=== PATIENT | female | born 1930 | race Caucasian/White ===

== ENCOUNTER 2016-04-30 10:01 | Emergency (ER) | payer OTHER, BC ==
[~2016-04-30] VITALS: Ht 172.7 cm; Wt 79.0 kg
[~2016-04-30 10:01] MED LIST: ADVIL,NUPRIN,M200 MG PO; AMLODIPINE BES2.5 MG PO; CALCIUM 600 +1 EA12 PO; DONEPEZIL HCL10 MG PO; FOLIC ACID1 MG PO; LOSARTAN POTAS100 MG PO; TYLENOL EXTRA500 MG PO; VITAMIN B-12500 MC2 PO; VITRON-C TABLE1 EACH PO
[2016-04-30 10:40] LABS: HEMATOCRIT 35.9 % (36.0-46.0); MCH 30.1 PG (29.0-34.0); MCHC 32.6 G/DL (30.0-36.0); MCV 92.3 FL (83-99); MEAN PLAT.VOLUME 9.5 uM^3 (9.5-12.4); PLATELET COUNT 277 K/uL (156-360); RBC DIS.WIDTH-CV 13.6 % (11.8-14.6); RBC DIS.WIDTH-SD 44.6 % (39-53); RED BLOOD COUNT 3.89 M/uL (3.80-5.20); WHITE BLOOD COUNT 8.3 K/uL (4.1-10.2)
[2016-04-30 10:48] LABS: PROTHROMBIN TIME 10.1 (9.2-11.2)
[2016-04-30 10:49] LABS: CHLORIDE 104 mEq/L (99-109); POTASSIUM 4.1 mEq/L (3.7-5.4); SODIUM 137 mEq/L (136-147)
[2016-04-30 10:51] LABS: GLUCOSE 137 mg/dL (70-99)
[2016-04-30 10:52] LABS: ANION GAP 8 MEQ/L (2-14)
[2016-04-30 10:55] LABS: GFR ESTIMATE (CALCULATED) 41 mL/min/; UREA NITROGEN (BUN) 21 mg/dL (9-23)
[2016-04-30 11:00] LABS: TROP-I INTERPRETATION NEGATIVE; TROPONIN-I < 0.01 ng/mL (0.0-0.30)
[2016-04-30 15:56] VITALS: BP 149/76
== END 2016-04-30 15:57 ==
LOC: EME → EDBD 10:01 → EME 10:01
PROVIDERS: Emergency Medicine
DX: I49.9 Cardiac arrhythmia, unspecified (principal); F03.90 Unspecified dementia, unspecified severity, without behavioral disturbance, psychotic disturbance, mood disturbance, and anxiety; I10 Essential (primary) hypertension; Z88.2 Allergy status to sulfonamides
CPT/HCPCS: 71010; 80048; 81003; 83605; 84484; 85027; 85610; 93005; 99281; 99285; J7030

== ENCOUNTER 2017-01-30 19:12 | Inpatient (IN) | payer OTHER, BC ==
[~2017-01-30] VITALS: Ht 162.6 cm; Wt 90.0 kg
[~2017-01-30 19:12] MED LIST changes: -AMLODIPINE BES2.5 MG PO; +AMLODIPINE BESYL5 MG PO; +CYANOCOBALAM1000 MCG PO; -LOSARTAN POTAS100 MG PO; +LOSARTAN POTASS50 MG PO; -VITAMIN B-12500 MC2 PO
[2017-01-30 19:38] LABS: HEMATOCRIT 35.7 % (36.0-46.0); MCH 29.8 PG (29.0-34.0); MCHC 33.3 G/DL (30.0-36.0); MCV 89.5 FL (83-99); MEAN PLAT.VOLUME 8.3 uM^3 (9.5-12.4); PLATELET COUNT 392 K/uL (156-360); RBC DIS.WIDTH-CV 12.8 % (11.8-14.6); RBC DIS.WIDTH-SD 42.1 % (39-53); RED BLOOD COUNT 3.99 M/uL (3.80-5.20); WHITE BLOOD COUNT 15.6 K/uL (4.1-10.2)
[2017-01-30 19:44] LABS: PROTHROMBIN TIME 11.3 SEC (10.2-12.9)
[2017-01-30 19:46] LABS: CHLORIDE 92 mEq/L (99-109); POTASSIUM 4.5 mEq/L (3.7-5.4); SODIUM 132 mEq/L (136-147)
[2017-01-30 19:47] LABS: PTT 26.7 SEC (25-37)
[2017-01-30 19:48] LABS: GLUCOSE 187 mg/dL (70-99)
[2017-01-30 19:50] LABS: ANION GAP 15 MEQ/L (2-14)
[2017-01-30 19:52] LABS: GFR ESTIMATE (CALCULATED) 38 mL/min/
[2017-01-30 19:53] LABS: UREA NITROGEN (BUN) 28 mg/dL (9-23)
[2017-01-30 19:59] LABS: TROP-I INTERPRETATION NEGATIVE; TROPONIN-I 0.02 ng/mL (0.0-0.30)
[2017-01-30] MEDS ORDERED: FEOSOL325 MG PO (21:11)
[2017-01-30] MEDS ORDERED: MOBIC7.5 MG PO (21:13)
[2017-01-30] MEDS ORDERED: ZOLOFT50 MG PO (21:16)
[2017-01-30] MEDS ORDERED: DEPAKOTE125 MG PO (21:17)
[2017-01-30] MEDS ORDERED: CRANBERRY450 M3 PO (21:17)
[2017-01-30] MEDS ORDERED: ULTRAM50 MG PO (21:20)
[2017-01-30] MEDS ORDERED: XALATAN2.5 ML BOTH EYES (21:22)
[2017-01-31] VITALS (7 sets, daily range): BP systolic 103–138; BP diastolic 57–76
[2017-01-31 15:03] LABS: TROP-I INTERPRETATION NEGATIVE; TROPONIN-I 0.03 ng/mL (0.0-0.30)
[2017-02-01 06:20] LABS: HEMATOCRIT 36.2 % (36.0-46.0); MCH 29.9 PG (29.0-34.0); MCHC 34.3 G/DL (30.0-36.0); MCV 87.2 FL (83-99); MEAN PLAT.VOLUME 9.2 uM^3 (9.5-12.4); PLATELET COUNT 423 K/uL (156-360); RBC DIS.WIDTH-CV 13.2 % (11.8-14.6); RBC DIS.WIDTH-SD 42.1 % (39-53); RED BLOOD COUNT 4.15 M/uL (3.80-5.20); WHITE BLOOD COUNT 25.9 K/uL (4.1-10.2)
[2017-02-01 06:31] VITALS: BP 145/69
[2017-02-01 06:44] LABS: ALKALINE PHOSPHATASE 130 IU/L (3-129); ANION GAP 13 MEQ/L (2-14); CHLORIDE 93 MEQ/L (99-109); SAMPLE HEMOLYSIS CHECK 0; SAMPLE ICTERIC CHECK 0; SAMPLE LIPEMIA CHECK 0; SODIUM 131 MEQ/L (136-147); TOTAL BILIRUBIN 0.3 MG/DL (0.0-1.0)
[2017-02-01 06:48] LABS: GFR ESTIMATE (CALCULATED) 11 mL/min/; GLUCOSE 114 mg/dL (70-99); POTASSIUM 5.7 MEQ/L (3.7-5.4); UREA NITROGEN (BUN) 57 mg/dL (9-23)
[2017-02-01 08:23] VITALS: BP 132/77
[2017-02-01 12:10] VITALS: BP 117/74
[2017-02-01 16:30] VITALS: BP 118/73
[2017-02-01 23:41] VITALS: BP 123/59
[2017-02-02 05:33] LABS: HEMATOCRIT 33.7 % (36.0-46.0); MCH 29.4 PG (29.0-34.0); MCHC 33.5 G/DL (30.0-36.0); MCV 87.5 FL (83-99); MEAN PLAT.VOLUME 9.6 uM^3 (9.5-12.4); PLATELET COUNT 411 K/uL (156-360); RBC DIS.WIDTH-CV 13.2 % (11.8-14.6); RBC DIS.WIDTH-SD 42.4 % (39-53); RED BLOOD COUNT 3.85 M/uL (3.80-5.20); WHITE BLOOD COUNT 24.1 K/uL (4.1-10.2)
[2017-02-02 06:09] LABS: ALKALINE PHOSPHATASE 126 IU/L (3-129); ANION GAP 15 MEQ/L (2-14); CHLORIDE 91 MEQ/L (99-109); GFR ESTIMATE (CALCULATED) 9 mL/min/; GLUCOSE 101 mg/dL (70-99); POTASSIUM 5.1 MEQ/L (3.7-5.4); SAMPLE HEMOLYSIS CHECK 0; SAMPLE ICTERIC CHECK 0; SAMPLE LIPEMIA CHECK 0; SODIUM 130 MEQ/L (136-147); TOTAL BILIRUBIN 0.3 MG/DL (0.0-1.0); UREA NITROGEN (BUN) 80 mg/dL (9-23)
[2017-02-02 08:08] VITALS: BP 142/82
[2017-02-02 15:50] LABS: ADD MIUA? YES; BILIRUBIN NEGATIVE; BLOOD NEGATIVE; COLOR YELLOW ((YELLOW)); GLUCOSE (STRIP) NEGATIVE; KETONES NEGATIVE; LEUKOCYTES TRACE; NITRITE NEGATIVE; PROTEIN (STRIP) 30; SPECIFIC GRAVITY 1.017 (1.000-1.030); UROBILINOGEN 0.2 MG/DL (0.2-1.0)
[2017-02-02 16:03] LABS: BACTERIA RARE /HPF; EPITHELIAL CELLS 1+ /HPF; HYALINE CASTS 0-5 /LPF; MUCUS TRACE /LPF; RED BLOOD CELLS 0-5 /HPF (0-5); WHITE BLOOD CELLS CLUMP RARE /HPF (0-5)
[2017-02-02 16:21] VITALS: BP 132/63
[2017-02-02 23:13] VITALS: BP 131/63
[2017-02-03 06:58] LABS: EOSINOPHIL (%) 0.3 % (0-5); EOSINOPHIL COUNT 0.1 K/uL (0-0.3); HEMATOCRIT 32.3 % (36.0-46.0); IMMATURE GRANULOCYTE (%) 0.9 % (0.0-0.7); IMMATURE GRANULOCYTE COUNT 0.2 K/uL; INSTRUMENT ABS NEUTROPHIL CT 20.5 K/uL; LYMPHOCYTE COUNT 0.8 K/uL (1.0-2.8); MCH 28.8 PG (29.0-34.0); MCHC 32.2 G/DL (30.0-36.0); MCV 89.5 FL (83-99); MEAN PLAT.VOLUME 8.9 uM^3 (9.5-12.4); MONOCYTE (%) 3.8 % (3-12); MONOCYTE COUNT 0.9 K/uL (0-0.8); NEUTROPHIL (%) 91.3 % (45-76); NEUTROPHIL COUNT 20.5 K/uL (1.8-6.4); PLATELET COUNT 398 K/uL (156-360); RBC DIS.WIDTH-CV 13.3 % (11.8-14.6); RBC DIS.WIDTH-SD 43.8 % (39-53); RED BLOOD COUNT 3.61 M/uL (3.80-5.20); WHITE BLOOD COUNT 22.5 K/uL (4.1-10.2)
[2017-02-03 07:45] VITALS: BP 132/63
[2017-02-03 08:36] LABS: ALKALINE PHOSPHATASE 129 IU/L (3-129); ANION GAP 14 MEQ/L (2-14); CHLORIDE 97 MEQ/L (99-109); CREATINE KINASE 35 IU/L (1-294); GFR ESTIMATE (CALCULATED) 9 mL/min/; GLUCOSE 93 mg/dL (70-99); SAMPLE HEMOLYSIS CHECK 0; SAMPLE ICTERIC CHECK 0; SAMPLE LIPEMIA CHECK 0; SODIUM 133 MEQ/L (136-147); UREA NITROGEN (BUN) 99 mg/dL (9-23); URIC ACID 9.8 mg/dL (3.1-9.2)
[2017-02-03 08:37] LABS: TOTAL BILIRUBIN 0.2 MG/DL (0.0-1.0)
[2017-02-03 10:06] LABS: ADD MIUA? YES; BILIRUBIN NEGATIVE; BLOOD MODERATE; COLOR YELLOW ((YELLOW)); GLUCOSE (STRIP) NEGATIVE; KETONES NEGATIVE; LEUKOCYTES MODERATE; NITRITE NEGATIVE; PROTEIN (STRIP) 30; SPECIFIC GRAVITY 1.013 (1.000-1.030); UROBILINOGEN 0.2 MG/DL (0.2-1.0)
[2017-02-03 10:45] LABS: BACTERIA 2+ /HPF; EPITHELIAL CELLS RARE /HPF; HYALINE CASTS 15-20 /LPF; MUCUS TRACE /LPF; UCUL ADDED? YES; WHITE BLOOD CELLS 15-20 /HPF (0-5); WHITE BLOOD CELLS CLUMP FEW /HPF (0-5)
[2017-02-03 11:36] VITALS: BP 137/66
[2017-02-03 11:39] VITALS: BP 132/63
[2017-02-03 16:14] VITALS: BP 139/67
[2017-02-03 23:44] VITALS: BP 159/79
[2017-02-04 06:52] LABS: EOSINOPHIL (%) 0 % (0-5); HEMATOCRIT 31.4 % (36.0-46.0); IMMATURE GRANULOCYTE (%) 2.4 % (0.0-0.7); IMMATURE GRANULOCYTE COUNT 0.4 K/uL; INSTRUMENT ABS NEUTROPHIL CT 14.9 K/uL; LYMPHOCYTE COUNT 0.7 K/uL (1.0-2.8); MCHC 33.1 G/DL (30.0-36.0); MCV 87.5 FL (83-99); MEAN PLAT.VOLUME 8.7 uM^3 (9.5-12.4); MONOCYTE (%) 3.9 % (3-12); MONOCYTE COUNT 0.7 K/uL (0-0.8); NEUTROPHIL (%) 89.4 % (45-76); NEUTROPHIL COUNT 14.9 K/uL (1.8-6.4); PLATELET COUNT 417 K/uL (156-360); RBC DIS.WIDTH-CV 13.2 % (11.8-14.6); RBC DIS.WIDTH-SD 42.6 % (39-53); RED BLOOD COUNT 3.59 M/uL (3.80-5.20); WHITE BLOOD COUNT 16.7 K/uL (4.1-10.2)
[2017-02-04 07:48] LABS: ANION GAP 15 MEQ/L (2-14); CHLORIDE 103 MEQ/L (99-109); GLUCOSE 108 mg/dL (70-99); POTASSIUM 5.2 MEQ/L (3.7-5.4); SAMPLE HEMOLYSIS CHECK 0; SAMPLE ICTERIC CHECK 0; SAMPLE LIPEMIA CHECK 0
[2017-02-04 07:54] LABS: GFR ESTIMATE (CALCULATED) 12 mL/min/; SODIUM 141 MEQ/L (136-147)
[2017-02-04 08:15] LABS: UREA NITROGEN (BUN) 117 mg/dL (9-23)
[2017-02-04 08:22] VITALS: BP 164/76
[2017-02-04 15:00] VITALS: BP 137/65
[2017-02-04 23:27] VITALS: BP 183/72
[2017-02-04 23:44] VITALS: BP 142/58
[2017-02-05 06:53] LABS: HEMATOCRIT 30.1 % (36.0-46.0); MCH 28.8 PG (29.0-34.0); MCHC 32.6 G/DL (30.0-36.0); MCV 88.5 FL (83-99); MEAN PLAT.VOLUME 8.9 uM^3 (9.5-12.4); PLATELET COUNT 462 K/uL (156-360); RBC DIS.WIDTH-CV 13.6 % (11.8-14.6); RBC DIS.WIDTH-SD 44.2 % (39-53); WHITE BLOOD COUNT 18.3 K/uL (4.1-10.2)
[2017-02-05 07:34] LABS: ANION GAP 13 MEQ/L (2-14); CHLORIDE 107 MEQ/L (99-109); GFR ESTIMATE (CALCULATED) 17 mL/min/; GLUCOSE 96 mg/dL (70-99); MAGNESIUM 2.2 mg/dl (1.3-2.7); POTASSIUM 4.3 MEQ/L (3.7-5.4); SAMPLE HEMOLYSIS CHECK 0; SAMPLE ICTERIC CHECK 0; SAMPLE LIPEMIA CHECK 0; SODIUM 145 MEQ/L (136-147)
[2017-02-05 07:41] LABS: ABS NEUTROPHIL COUNT 15.6; ANISOCYTOSIS 1+; ATYPICAL LYMPHOCYTE 1.7 %; EOSINOPHIL ABS CT 0; HYPOCHROMASIA 1+; INSTRUMENT ABS NEUTROPHIL CT 14.8 K/uL; LYMPHOCYTES 4.4 % (15.0-45.0); MACROCYTES 1+; METAMYELOCYTES 0.9 %; MYELOCYTES 4.4 %; PLAT.SUFFICIENCY INCREASED; SEG.NEUTROPHILS 85.1 % (46.0-76.0); TARGET CELLS 1+
[2017-02-05 07:43] LABS: UREA NITROGEN (BUN) 112 mg/dL (9-23)
[2017-02-05 08:13] VITALS: BP 149/83
[2017-02-05 15:41] VITALS: BP 152/78
[2017-02-05 19:26] VITALS: BP 123/95
[2017-02-05 23:36] VITALS: BP 142/72
[2017-02-06 04:38] VITALS: BP 171/72
[2017-02-06 08:27] VITALS: BP 168/74
[2017-02-06 15:32] VITALS: BP 175/75
[2017-02-06 23:31] VITALS: BP 135/63
[2017-02-07 06:55] LABS: ANION GAP 10 MEQ/L (2-14); CHLORIDE 116 MEQ/L (99-109); GFR ESTIMATE (CALCULATED) 35 mL/min/; GLUCOSE 96 mg/dL (70-99); SAMPLE HEMOLYSIS CHECK 0; SAMPLE ICTERIC CHECK 0; SAMPLE LIPEMIA CHECK 0; SODIUM 151 MEQ/L (136-147); UREA NITROGEN (BUN) 77 mg/dL (9-23)
[2017-02-07 07:32] VITALS: BP 159/73
[2017-02-07 16:01] VITALS: BP 155/67
[2017-02-07 23:31] VITALS: BP 130/65
[2017-02-08 06:59] LABS: HEMATOCRIT 26.8 % (36.0-46.0); MCH 30.1 PG (29.0-34.0); MCHC 33.2 G/DL (30.0-36.0); MCV 90.5 FL (83-99); RBC DIS.WIDTH-CV 14.1 % (11.8-14.6); RBC DIS.WIDTH-SD 46.3 % (39-53); RED BLOOD COUNT 2.96 M/uL (3.80-5.20)
[2017-02-08 07:24] LABS: ANION GAP 9 MEQ/L (2-14); CHLORIDE 121 MEQ/L (99-109); GFR ESTIMATE (CALCULATED) 30 mL/min/; GLUCOSE 96 mg/dL (70-99); POTASSIUM 4.3 MEQ/L (3.7-5.4); SAMPLE HEMOLYSIS CHECK 0; SAMPLE ICTERIC CHECK 0; SAMPLE LIPEMIA CHECK 0; SODIUM 156 MEQ/L (136-147); UREA NITROGEN (BUN) 73 mg/dL (9-23)
[2017-02-08 07:31] LABS: ABS NEUTROPHIL COUNT 22.5; ANISOCYTOSIS 1+; ATYPICAL LYMPHOCYTE 1.8 %; BAND NEUTROPHILS 0.9 % (0-8.0); EOSINOPHIL ABS CT 0.4; EOSINOPHILS 1.8 % (0-5.0); INSTRUMENT ABS NEUTROPHIL CT 19.4 K/uL; MACROCYTES 1+; METAMYELOCYTES 0.9 %; PLAT.SUFFICIENCY INCREASED; PLATELET CLUMPS PRESENT - PLATELET COUNT APPEARS INCREASED; SEG.NEUTROPHILS 92.8 % (46.0-76.0); TARGET CELLS 1+
[2017-02-08 07:34] LABS: PLATELET COUNT UNABLE TO REPORT K/uL (156-360)
[2017-02-08 08:20] VITALS: BP 114/56
[2017-02-08 16:38] VITALS: BP 158/75
[2017-02-08 23:22] VITALS: BP 177/80
[2017-02-09 06:57] LABS: EOSINOPHIL (%) 0 % (0-5); IMMATURE GRANULOCYTE (%) 3.8 % (0.0-0.7); IMMATURE GRANULOCYTE COUNT 1.1 K/uL; INSTRUMENT ABS NEUTROPHIL CT 26.9 K/uL; LYMPHOCYTE COUNT 1.2 K/uL (1.0-2.8); MEAN PLAT.VOLUME 9.4 uM^3 (9.5-12.4); MONOCYTE (%) 2.3 % (3-12); MONOCYTE COUNT 0.7 K/uL (0-0.8); NEUTROPHIL (%) 89.9 % (45-76); NEUTROPHIL COUNT 26.9 K/uL (1.8-6.4)
[2017-02-09 07:02] LABS: HEMATOCRIT 25.3 % (36.0-46.0); MCHC 32.8 G/DL (30.0-36.0); MCV 91.3 FL (83-99); RBC DIS.WIDTH-CV 14.4 % (11.8-14.6); RBC DIS.WIDTH-SD 47.5 % (39-53); RED BLOOD COUNT 2.77 M/uL (3.80-5.20)
[2017-02-09 07:03] LABS: PLATELET COUNT 396 K/uL (156-360); WHITE BLOOD COUNT 30.6 K/uL (4.1-10.2)
[2017-02-09 07:18] LABS: ALKALINE PHOSPHATASE 130 IU/L (3-129); ANION GAP 10 MEQ/L (2-14); CHLORIDE 118 MEQ/L (99-109); GFR ESTIMATE (CALCULATED) 30 mL/min/; POTASSIUM 3.9 MEQ/L (3.7-5.4); SAMPLE HEMOLYSIS CHECK 0; SAMPLE ICTERIC CHECK 0; SAMPLE LIPEMIA CHECK 0; SODIUM 152 MEQ/L (136-147); TOTAL BILIRUBIN 0.2 MG/DL (0.0-1.0); UREA NITROGEN (BUN) 72 mg/dL (9-23)
[2017-02-09 07:19] LABS: GLUCOSE 180 mg/dL (70-99); MAGNESIUM 1.8 mg/dl (1.3-2.7)
[2017-02-09 07:46] VITALS: BP 126/59
[2017-02-09 15:51] LABS: C DIFF TOXIN NEGATIVE (NEGATIVE)
[2017-02-09 16:02] LABS: PROBE CHECK PASS; SPECIMEN PROCESSING CONTROL PASS
[2017-02-09 16:48] VITALS: BP 133/68
[2017-02-09 23:15] VITALS: BP 137/63
[2017-02-10 06:25] LABS: BASOPHIL COUNT 0.1 K/uL (0-0.1); EOSINOPHIL (%) 0 % (0-5); HEMATOCRIT 24.6 % (36.0-46.0); IMMATURE GRANULOCYTE (%) 2.6 % (0.0-0.7); IMMATURE GRANULOCYTE COUNT 0.8 K/uL; INSTRUMENT ABS NEUTROPHIL CT 27.5 K/uL; LYMPHOCYTE COUNT 1.2 K/uL (1.0-2.8); MCH 29.8 PG (29.0-34.0); MCHC 32.9 G/DL (30.0-36.0); MCV 90.4 FL (83-99); MONOCYTE (%) 1.5 % (3-12); MONOCYTE COUNT 0.4 K/uL (0-0.8); NEUTROPHIL (%) 91.8 % (45-76); NEUTROPHIL COUNT 27.5 K/uL (1.8-6.4); RBC DIS.WIDTH-CV 14.7 % (11.8-14.6); RED BLOOD COUNT 2.72 M/uL (3.80-5.20)
[2017-02-10 06:37] LABS: ALKALINE PHOSPHATASE 122 IU/L (3-129); ANION GAP 11 MEQ/L (2-14); CHLORIDE 112 MEQ/L (99-109); GFR ESTIMATE (CALCULATED) 28 mL/min/; GLUCOSE 170 mg/dL (70-99); POTASSIUM 3.9 MEQ/L (3.7-5.4); SAMPLE HEMOLYSIS CHECK 0; SAMPLE ICTERIC CHECK 0; SAMPLE LIPEMIA CHECK 0; TOTAL BILIRUBIN 0.2 MG/DL (0.0-1.0); UREA NITROGEN (BUN) 74 mg/dL (9-23)
[2017-02-10 06:38] LABS: SODIUM 144 MEQ/L (136-147)
[2017-02-10 06:39] LABS: MEAN PLAT.VOLUME 10.7 uM^3 (9.5-12.4); PLATELET COUNT 260 K/uL (156-360)
[2017-02-10 07:28] VITALS: BP 127/76
[2017-02-10 11:48] VITALS: BP 141/72
[2017-02-10 11:53] VITALS: BP 126/80; BP 141/72
[2017-02-10 15:21] VITALS: BP 123/92
[2017-02-11 00:01] VITALS: BP 131/68
[2017-02-11 05:51] LABS: BASOPHIL COUNT 0.1 K/uL (0-0.1); EOSINOPHIL (%) 0 % (0-5); HEMATOCRIT 24.8 % (36.0-46.0); IMMATURE GRANULOCYTE (%) 1.8 % (0.0-0.7); IMMATURE GRANULOCYTE COUNT 0.6 K/uL; INSTRUMENT ABS NEUTROPHIL CT 27.8 K/uL; LYMPHOCYTE COUNT 0.8 K/uL (1.0-2.8); MCH 28.7 PG (29.0-34.0); MCHC 32.3 G/DL (30.0-36.0); MCV 88.9 FL (83-99); MEAN PLAT.VOLUME 9.7 uM^3 (9.5-12.4); MONOCYTE COUNT 0.6 K/uL (0-0.8); NEUTROPHIL (%) 93.2 % (45-76); NEUTROPHIL COUNT 27.8 K/uL (1.8-6.4); NRBC (%) 0.1 /100 WBC (0-0); RBC DIS.WIDTH-CV 14.4 % (11.8-14.6); RBC DIS.WIDTH-SD 45.8 % (39-53); RED BLOOD COUNT 2.79 M/uL (3.80-5.20); WHITE BLOOD COUNT 29.9 K/uL (4.1-10.2)
[2017-02-11 05:54] LABS: PLATELET COUNT 480 K/uL (156-360)
[2017-02-11 06:21] LABS: ANION GAP 11 MEQ/L (2-14); CHLORIDE 108 MEQ/L (99-109); GFR ESTIMATE (CALCULATED) 25 mL/min/; GLUCOSE 122 mg/dL (70-99); MAGNESIUM 1.9 mg/dl (1.3-2.7); POTASSIUM 4.5 MEQ/L (3.7-5.4); SAMPLE HEMOLYSIS CHECK 0; SAMPLE ICTERIC CHECK 0; SAMPLE LIPEMIA CHECK 0; SODIUM 143 MEQ/L (136-147); UREA NITROGEN (BUN) 88 mg/dL (9-23)
[2017-02-11 07:16] VITALS: BP 143/67
[2017-02-11 09:08] LABS: TROP-I INTERPRETATION NEGATIVE; TROPONIN-I 0.04 ng/mL (0.0-0.30)
[2017-02-11 12:19] LABS: POINT-OF-CARE METER ID UU14208753
[2017-02-11 14:58] LABS: TROP-I INTERPRETATION NEGATIVE; TROPONIN-I 0.04 ng/mL (0.0-0.30)
[2017-02-11 15:54] VITALS: BP 133/71
[2017-02-11 20:05] LABS: TROP-I INTERPRETATION NEGATIVE; TROPONIN-I 0.05 ng/mL (0.0-0.30)
[2017-02-11 23:26] VITALS: BP 135/68
[2017-02-12] VITALS (23 sets, daily range): BP systolic 90–145; BP diastolic 54–97
[2017-02-12 00:52] LABS: INTER. NORMALIZED RATIO 1.1
[2017-02-12 07:15] LABS: ANION GAP 10 MEQ/L (2-14); CHLORIDE 109 MEQ/L (99-109); GFR ESTIMATE (CALCULATED) 25 mL/min/; GLUCOSE 154 mg/dL (70-99); MAGNESIUM 1.8 mg/dl (1.3-2.7); SAMPLE HEMOLYSIS CHECK 0; SAMPLE ICTERIC CHECK 0; SAMPLE LIPEMIA CHECK 0; SODIUM 140 MEQ/L (136-147); UREA NITROGEN (BUN) 97 mg/dL (9-23)
[2017-02-12 09:40] LABS: EOSINOPHIL (%) 30.9 % (0-5); EOSINOPHIL COUNT 7.9 K/uL (0-0.3); HEMATOCRIT 18.8 % (36.0-46.0); IMMATURE GRANULOCYTE (%) 1.5 % (0.0-0.7); IMMATURE GRANULOCYTE COUNT 0.4 K/uL; INSTRUMENT ABS NEUTROPHIL CT 16.2 K/uL; LYMPHOCYTE COUNT 0.5 K/uL (1.0-2.8); MCH 29.7 PG (29.0-34.0); MEAN PLAT.VOLUME 10.4 uM^3 (9.5-12.4); MONOCYTE (%) 2.1 % (3-12); MONOCYTE COUNT 0.6 K/uL (0-0.8); NEUTROPHIL (%) 63.3 % (45-76); NEUTROPHIL COUNT 16.2 K/uL (1.8-6.4); PLATELET COUNT 431 K/uL (156-360); RBC DIS.WIDTH-CV 14.5 % (11.8-14.6); RED BLOOD COUNT 2.09 M/uL (3.80-5.20); WHITE BLOOD COUNT 25.7 K/uL (4.1-10.2)
[2017-02-12 15:52] LABS: BASOPHIL COUNT 0.1 K/uL (0-0.1); EOSINOPHIL (%) 0 % (0-5); HEMATOCRIT 16.2 % (36.0-46.0); HEMATOCRIT 16.5 % (36.0-46.0); IMMATURE GRANULOCYTE (%) 3.2 % (0.0-0.7); IMMATURE GRANULOCYTE COUNT 1.1 K/uL; MCH 29.5 PG (29.0-34.0); MCHC 32.1 G/DL (30.0-36.0); MCV 91.7 FL (83-99); MEAN PLAT.VOLUME 10.3 uM^3 (9.5-12.4); MONOCYTE (%) 2.7 % (3-12); NEUTROPHIL (%) 91.3 % (45-76); NRBC (%) 0.1 /100 WBC (0-0); PLATELET COUNT 468 K/uL (156-360); RBC DIS.WIDTH-CV 14.7 % (11.8-14.6); RBC DIS.WIDTH-SD 48.2 % (39-53); RED BLOOD COUNT 1.76 M/uL (3.80-5.20)
[2017-02-12 15:56] LABS: WHITE BLOOD COUNT 36.1 K/uL (4.1-10.2)
[2017-02-12 16:00] LABS: ANION GAP 12 MEQ/L (2-14); CHLORIDE 108 MEQ/L (99-109); POTASSIUM 4.4 MEQ/L (3.7-5.4); SAMPLE HEMOLYSIS CHECK 0; SAMPLE ICTERIC CHECK 0; SAMPLE LIPEMIA CHECK 0; SODIUM 137 MEQ/L (136-147)
[2017-02-12 16:01] LABS: TOTAL BILIRUBIN 0.5 MG/DL (0.0-1.0)
[2017-02-12 16:07] LABS: GFR ESTIMATE (CALCULATED) 21 mL/min/; GLUCOSE 187 mg/dL (70-99)
[2017-02-12 16:09] LABS: ALKALINE PHOSPHATASE 87 IU/L (3-129); TROP-I INTERPRETATION NEGATIVE; TROPONIN-I 0.06 ng/mL (0.0-0.30)
[2017-02-12 16:24] LABS: UREA NITROGEN (BUN) 111 mg/dL (9-23)
[2017-02-12 18:37] LABS: POINT-OF-CARE METER ID UU14174217
[2017-02-12 19:00] LABS: METH RESISTANT S AUREUS PCR NEGATIVE (NEGATIVE)
[2017-02-12 19:03] LABS: PROBE CHECK PASS; SPECIMEN PROCESSING CONTROL PASS
[2017-02-12 20:14] LABS: HEMATOCRIT 24.2 % (36.0-46.0); MCV 88.6 FL (83-99)
[2017-02-13] VITALS (20 sets, daily range): BP systolic 98–161; BP diastolic 60–119
[2017-02-13 01:52] LABS: HEMATOCRIT 31.2 % (36.0-46.0)
[2017-02-13 05:41] LABS: INTER. NORMALIZED RATIO 1.1; PROTHROMBIN TIME 12.3 SEC (10.2-12.9)
[2017-02-13 05:54] LABS: BASOPHIL COUNT 0.1 K/uL (0-0.1); EOSINOPHIL (%) 0 % (0-5); HEMATOCRIT 29.6 % (36.0-46.0); IMMATURE GRANULOCYTE (%) 3.7 % (0.0-0.7); IMMATURE GRANULOCYTE COUNT 1.1 K/uL; INSTRUMENT ABS NEUTROPHIL CT 26.4 K/uL; LYMPHOCYTE COUNT 0.8 K/uL (1.0-2.8); MCH 28.9 PG (29.0-34.0); MCHC 33.4 G/DL (30.0-36.0); MCV 86.3 FL (83-99); MONOCYTE (%) 3.6 % (3-12); MONOCYTE COUNT 1.1 K/uL (0-0.8); NEUTROPHIL (%) 89.7 % (45-76); NEUTROPHIL COUNT 26.4 K/uL (1.8-6.4); RBC DIS.WIDTH-CV 15.8 % (11.8-14.6); RBC DIS.WIDTH-SD 49.3 % (39-53); WHITE BLOOD COUNT 29.4 K/uL (4.1-10.2)
[2017-02-13 05:55] LABS: RED BLOOD COUNT 3.43 M/uL (3.80-5.20)
[2017-02-13 06:19] LABS: ALKALINE PHOSPHATASE 78 IU/L (3-129); ANION GAP 12 MEQ/L (2-14); CHLORIDE 114 MEQ/L (99-109); GFR ESTIMATE (CALCULATED) 24 mL/min/; GLUCOSE 130 mg/dL (70-99); POTASSIUM 4.1 MEQ/L (3.7-5.4); SAMPLE HEMOLYSIS CHECK 0; SAMPLE ICTERIC CHECK 0; SAMPLE LIPEMIA CHECK 0; SODIUM 145 MEQ/L (136-147); TOTAL BILIRUBIN 0.8 MG/DL (0.0-1.0); UREA NITROGEN (BUN) 114 mg/dL (9-23)
[2017-02-13 07:14] LABS: MEAN PLAT.VOLUME 10.7 uM^3 (9.5-12.4); PLAT.SUFFICIENCY ADEQUATE
[2017-02-13 07:20] LABS: PLATELET COUNT 292 K/uL (156-360)
[2017-02-13 13:08] LABS: HEMATOCRIT 30.4 % (36.0-46.0); MCV 85.4 FL (83-99)
[2017-02-14 03:36] VITALS: BP 129/78
[2017-02-14 08:05] VITALS: BP 145/77
[2017-02-14 09:04] LABS: BASOPHIL COUNT 0.1 K/uL (0-0.1); EOSINOPHIL (%) 0 % (0-5); IMMATURE GRANULOCYTE (%) 4.9 % (0.0-0.7); IMMATURE GRANULOCYTE COUNT 1.6 K/uL; INSTRUMENT ABS NEUTROPHIL CT 28.3 K/uL; LYMPHOCYTE COUNT 0.9 K/uL (1.0-2.8); MEAN PLAT.VOLUME 10.5 uM^3 (9.5-12.4); MONOCYTE (%) 3.4 % (3-12); MONOCYTE COUNT 1.1 K/uL (0-0.8); NEUTROPHIL (%) 88.7 % (45-76); NEUTROPHIL COUNT 28.3 K/uL (1.8-6.4); PLATELET COUNT 357 K/uL (156-360)
[2017-02-14 09:08] LABS: HEMATOCRIT 29.8 % (36.0-46.0); MCH 29.4 PG (29.0-34.0); MCHC 33.9 G/DL (30.0-36.0); MCV 86.6 FL (83-99); NRBC (%) 0.3 /100 WBC (0-0); RBC DIS.WIDTH-CV 17.2 % (11.8-14.6); RBC DIS.WIDTH-SD 52.4 % (39-53); RED BLOOD COUNT 3.44 M/uL (3.80-5.20)
[2017-02-14 09:10] LABS: WHITE BLOOD COUNT 31.9 K/uL (4.1-10.2)
[2017-02-14 09:26] LABS: ANION GAP 13 MEQ/L (2-14); CHLORIDE 118 MEQ/L (99-109); GFR ESTIMATE (CALCULATED) 27 mL/min/; GLUCOSE 112 mg/dL (70-99); POTASSIUM 3.6 MEQ/L (3.7-5.4); SAMPLE HEMOLYSIS CHECK 0; SAMPLE ICTERIC CHECK 0; SAMPLE LIPEMIA CHECK 0; SODIUM 148 MEQ/L (136-147); UREA NITROGEN (BUN) 100 mg/dL (9-23)
[2017-02-14 09:45] LABS: PROTHROMBIN TIME 11.4 SEC (10.2-12.9)
[2017-02-14 11:50] VITALS: BP 141/79
[2017-02-14 15:39] LABS: HEMATOCRIT 29.3 % (36.0-46.0); MCV 88.8 FL (83-99)
[2017-02-14 17:28] VITALS: BP 161/76
[2017-02-14 20:05] VITALS: BP 169/76
[2017-02-14 20:50] VITALS: BP 148/64
[2017-02-14 20:57] LABS: HEMATOCRIT 27.4 % (36.0-46.0); MCV 88.4 FL (83-99)
[2017-02-15] VITALS (8 sets, daily range): BP systolic 135–159; BP diastolic 60–70
[2017-02-15 07:46] LABS: HEMATOCRIT 27.2 % (36.0-46.0); MCH 29.1 PG (29.0-34.0); MCHC 32.7 G/DL (30.0-36.0); MCV 88.9 FL (83-99); MEAN PLAT.VOLUME 10.4 uM^3 (9.5-12.4); NRBC (%) 0.7 /100 WBC (0-0); PLATELET COUNT 356 K/uL (156-360); RBC DIS.WIDTH-CV 17.4 % (11.8-14.6); RBC DIS.WIDTH-SD 54.5 % (39-53); RED BLOOD COUNT 3.06 M/uL (3.80-5.20); WHITE BLOOD COUNT 23.8 K/uL (4.1-10.2)
[2017-02-15 07:52] LABS: PROTHROMBIN TIME 11.9 SEC (10.2-12.9)
[2017-02-15 08:14] LABS: ALKALINE PHOSPHATASE 79 IU/L (3-129); ANION GAP 10 MEQ/L (2-14); CHLORIDE 124 MEQ/L (99-109); GFR ESTIMATE (CALCULATED) 27 mL/min/; GLUCOSE 113 mg/dL (70-99); POTASSIUM 3.6 MEQ/L (3.7-5.4); SAMPLE HEMOLYSIS CHECK 0; SAMPLE ICTERIC CHECK 0; SAMPLE LIPEMIA CHECK 0; SODIUM 153 MEQ/L (136-147); UREA NITROGEN (BUN) 87 mg/dL (9-23)
[2017-02-15 08:19] LABS: TOTAL BILIRUBIN 0.4 MG/DL (0.0-1.0)
[2017-02-15 11:17] LABS: POINT-OF-CARE METER ID UU14162508
[2017-02-16 04:00] VITALS: BP 134/73
[2017-02-16 07:00] VITALS: BP 139/79
[2017-02-16 07:09] LABS: EOSINOPHIL COUNT 0.2 K/uL (0-0.3); HEMATOCRIT 26.1 % (36.0-46.0); IMMATURE GRANULOCYTE (%) 2.9 % (0.0-0.7); IMMATURE GRANULOCYTE COUNT 0.5 K/uL; INSTRUMENT ABS NEUTROPHIL CT 15.2 K/uL; LYMPHOCYTE COUNT 0.8 K/uL (1.0-2.8); MCH 29.4 PG (29.0-34.0); MCHC 32.2 G/DL (30.0-36.0); MCV 91.3 FL (83-99); MEAN PLAT.VOLUME 10.3 uM^3 (9.5-12.4); MONOCYTE (%) 4.2 % (3-12); MONOCYTE COUNT 0.7 K/uL (0-0.8); NEUTROPHIL (%) 87.4 % (45-76); NEUTROPHIL COUNT 15.2 K/uL (1.8-6.4); NRBC (%) 0.3 /100 WBC (0-0); PLATELET COUNT 327 K/uL (156-360); RBC DIS.WIDTH-CV 17.6 % (11.8-14.6); RBC DIS.WIDTH-SD 55.4 % (39-53); RED BLOOD COUNT 2.86 M/uL (3.80-5.20); WHITE BLOOD COUNT 17.4 K/uL (4.1-10.2)
[2017-02-16 07:14] LABS: PROTHROMBIN TIME 11.8 SEC (10.2-12.9)
[2017-02-16 07:54] LABS: ALKALINE PHOSPHATASE 71 IU/L (3-129); ANION GAP 6 MEQ/L (2-14); CHLORIDE 125 MEQ/L (99-109); GFR ESTIMATE (CALCULATED) 28 mL/min/; GLUCOSE 116 mg/dL (70-99); POTASSIUM 3.5 MEQ/L (3.7-5.4); SAMPLE HEMOLYSIS CHECK 0; SAMPLE ICTERIC CHECK 0; SAMPLE LIPEMIA CHECK 0; SODIUM 153 MEQ/L (136-147); UREA NITROGEN (BUN) 65 mg/dL (9-23)
[2017-02-16 07:56] LABS: TOTAL BILIRUBIN 0.3 MG/DL (0.0-1.0)
[2017-02-16 11:49] VITALS: BP 161/81
[2017-02-16 15:20] VITALS: BP 148/75
[2017-02-16 19:43] VITALS: BP 141/70
[2017-02-16 22:57] VITALS: BP 135/76
[2017-02-17 03:37] VITALS: BP 148/68
[2017-02-17 06:43] LABS: POINT-OF-CARE METER ID UU14314084
[2017-02-17 07:47] VITALS: BP 150/72
[2017-02-17 07:55] LABS: HEMATOCRIT 27.2 % (36.0-46.0); MCH 29.8 PG (29.0-34.0); MCHC 32.4 G/DL (30.0-36.0); MCV 92.2 FL (83-99); MEAN PLAT.VOLUME 10.2 uM^3 (9.5-12.4); NRBC (%) 0.2 /100 WBC (0-0); PLATELET COUNT 295 K/uL (156-360); RBC DIS.WIDTH-CV 18.3 % (11.8-14.6); RBC DIS.WIDTH-SD 56.5 % (39-53); RED BLOOD COUNT 2.95 M/uL (3.80-5.20); WHITE BLOOD COUNT 19.2 K/uL (4.1-10.2)
[2017-02-17 07:59] LABS: PROTHROMBIN TIME 11.2 SEC (10.2-12.9)
[2017-02-17 08:21] LABS: ALKALINE PHOSPHATASE 80 IU/L (3-129); ANION GAP 8 MEQ/L (2-14); CHLORIDE 120 MEQ/L (99-109); GFR ESTIMATE (CALCULATED) 38 mL/min/; GLUCOSE 111 mg/dL (70-99); POTASSIUM 3.3 MEQ/L (3.7-5.4); SAMPLE HEMOLYSIS CHECK 0; SAMPLE ICTERIC CHECK 0; SAMPLE LIPEMIA CHECK 0; SODIUM 148 MEQ/L (136-147); TOTAL BILIRUBIN 0.4 MG/DL (0.0-1.0); UREA NITROGEN (BUN) 48 mg/dL (9-23)
[2017-02-17 11:22] VITALS: BP 149/71
[2017-02-17 15:22] VITALS: BP 128/60
[2017-02-18 00:05] VITALS: BP 157/77
[2017-02-18 03:49] VITALS: BP 151/76
[2017-02-18 06:49] LABS: EOSINOPHIL (%) 2.3 % (0-5); EOSINOPHIL COUNT 0.3 K/uL (0-0.3); HEMATOCRIT 25.8 % (36.0-46.0); IMMATURE GRANULOCYTE (%) 1.5 % (0.0-0.7); IMMATURE GRANULOCYTE COUNT 0.2 K/uL; INSTRUMENT ABS NEUTROPHIL CT 12.6 K/uL; LYMPHOCYTE COUNT 0.7 K/uL (1.0-2.8); MCH 28.9 PG (29.0-34.0); MCHC 31.8 G/DL (30.0-36.0); MCV 90.8 FL (83-99); MONOCYTE (%) 4.1 % (3-12); MONOCYTE COUNT 0.6 K/uL (0-0.8); NEUTROPHIL (%) 87.1 % (45-76); NEUTROPHIL COUNT 12.6 K/uL (1.8-6.4); NRBC (%) 0.1 /100 WBC (0-0); PLATELET COUNT 268 K/uL (156-360); RBC DIS.WIDTH-CV 18.4 % (11.8-14.6); RBC DIS.WIDTH-SD 55.2 % (39-53); RED BLOOD COUNT 2.84 M/uL (3.80-5.20); WHITE BLOOD COUNT 14.4 K/uL (4.1-10.2)
[2017-02-18 07:10] LABS: PROTHROMBIN TIME 11.4 SEC (10.2-12.9)
[2017-02-18 07:12] LABS: ANION GAP 5 MEQ/L (2-14); CHLORIDE 119 MEQ/L (99-109); GFR ESTIMATE (CALCULATED) 41 mL/min/; GLUCOSE 96 mg/dL (70-99); MAGNESIUM 1.7 mg/dl (1.3-2.7); POTASSIUM 3.4 MEQ/L (3.7-5.4); SAMPLE HEMOLYSIS CHECK 0; SAMPLE ICTERIC CHECK 0; SAMPLE LIPEMIA CHECK 0; SODIUM 145 MEQ/L (136-147); UREA NITROGEN (BUN) 38 mg/dL (9-23)
[2017-02-18 07:35] VITALS: BP 167/72
[2017-02-18 11:31] VITALS: BP 158/72
[2017-02-18 16:59] VITALS: BP 180/80
[2017-02-18 19:30] VITALS: BP 161/68
[2017-02-19 00:30] VITALS: BP 160/74
[2017-02-19 03:45] VITALS: BP 137/65
[2017-02-19 06:35] LABS: EOSINOPHIL (%) 2.7 % (0-5); EOSINOPHIL COUNT 0.4 K/uL (0-0.3); HEMATOCRIT 26.5 % (36.0-46.0); IMMATURE GRANULOCYTE (%) 1.8 % (0.0-0.7); IMMATURE GRANULOCYTE COUNT 0.2 K/uL; INSTRUMENT ABS NEUTROPHIL CT 11.1 K/uL; LYMPHOCYTE COUNT 0.8 K/uL (1.0-2.8); MCH 29.4 PG (29.0-34.0); MCHC 32.1 G/DL (30.0-36.0); MCV 91.7 FL (83-99); MEAN PLAT.VOLUME 10.2 uM^3 (9.5-12.4); MONOCYTE (%) 4.2 % (3-12); MONOCYTE COUNT 0.5 K/uL (0-0.8); NEUTROPHIL (%) 85.4 % (45-76); NEUTROPHIL COUNT 11.1 K/uL (1.8-6.4); NRBC (%) 0.2 /100 WBC (0-0); PLATELET COUNT 260 K/uL (156-360); RBC DIS.WIDTH-CV 18.3 % (11.8-14.6); RBC DIS.WIDTH-SD 55.9 % (39-53); RED BLOOD COUNT 2.89 M/uL (3.80-5.20)
[2017-02-19 07:43] LABS: ANION GAP 8 MEQ/L (2-14); CHLORIDE 119 MEQ/L (99-109); GFR ESTIMATE (CALCULATED) 45 mL/min/; POTASSIUM 3.6 MEQ/L (3.7-5.4); SAMPLE HEMOLYSIS CHECK 0; SAMPLE ICTERIC CHECK 0; SAMPLE LIPEMIA CHECK 0; SODIUM 146 MEQ/L (136-147); UREA NITROGEN (BUN) 31 mg/dL (9-23)
[2017-02-19 07:45] LABS: GLUCOSE 66 mg/dL (70-99)
[2017-02-19 08:00] VITALS: BP 148/80
[2017-02-19] MEDS ORDERED: FLUCONAZOLE100 MG PO (15:38)
[2017-02-19] MEDS ORDERED: POTASSIUM CHLO20 MEQ PO (15:40)
[2017-02-19] MEDS ORDERED: TYLENOL REGULA325 MG PO (15:40)
[2017-02-19] MEDS ORDERED: PROTONIX40 MG PO (15:41)
[2017-02-19 17:14] VITALS: BP 148/77
== END 2017-02-19 18:21 | DRG 177 ==
LOC: EME 19:12 → EDOF 23:55 → 4WEST 23:55 → 2EAST 23:55 → 3EAST 23:55 → ENRESERV 23:58 → 3EAST 01-31 01:40 → ENRESERV 02-12 16:30 → 3EAST 02-12 16:32 → ENRESERV 02-12 16:35 → 4WEST 02-12 17:08 → ENRESERV 02-13 17:42 → 2EAST 02-13 19:39 → ENRESERV 02-17 22:20 → 2EAST 02-19 18:21
PROVIDERS: Emergency Medicine; Family Medicine; Hospitalist; Internal Medicine; Internal Medicine Critical Care Medicine; Internal Medicine Nephrology; Internal Medicine Pulmonary Disease
PROC: 30233N1 Transfusion of Nonautologous Red Blood Cells into Peripheral Vein, Percutaneous Approach (ICD-10-PCS; principal; 2017-02-12)
DX: J69.0 Pneumonitis due to inhalation of food and vomit (principal); N17.9 Acute kidney failure, unspecified; E87.1 Hypo-osmolality and hyponatremia; D62 Acute posthemorrhagic anemia; K92.0 Hematemesis; I13.0 Hypertensive heart and chronic kidney disease with heart failure and stage 1 through stage 4 chronic kidney disease, or unspecified chronic kidney disease; I50.9 Heart failure, unspecified; E87.5 Hyperkalemia; I49.9 Cardiac arrhythmia, unspecified; R55 Syncope and collapse; T45.515A Adverse effect of anticoagulants, initial encounter; N18.3 Chronic kidney disease, stage 3 (moderate); K57.91 Diverticulosis of intestine, part unspecified, without perforation or abscess with bleeding; E87.6 Hypokalemia; R13.10 Dysphagia, unspecified; I82.441 Acute embolism and thrombosis of right tibial vein; I12.9 Hypertensive chronic kidney disease with stage 1 through stage 4 chronic kidney disease, or unspecified chronic kidney disease; F32.9 Major depressive disorder, single episode, unspecified; G30.9 Alzheimer's disease, unspecified; R79.1 Abnormal coagulation profile; K44.9 Diaphragmatic hernia without obstruction or gangrene; E87.0 Hyperosmolality and hypernatremia; F02.80 Dementia in other diseases classified elsewhere, unspecified severity, without behavioral disturbance, psychotic disturbance, mood disturbance, and anxiety; Z66 Do not resuscitate; Z51.5 Encounter for palliative care; Z87.01 Personal history of pneumonia (recurrent); Z80.9 Family history of malignant neoplasm, unspecified; I25.2 Old myocardial infarction; Z87.81 Personal history of (healed) traumatic fracture; Z88.2 Allergy status to sulfonamides
CPT/HCPCS: 71010; 71020; 71250; 74230; 76770; 80048; 80053; 80069; 81003; 82533 91; 82550; 82948; 83605; 83735; 83880; 83935; 84100; 84300; 84443; 84484; 84550; 85014; 85018; 85025; 85025 91; 85027; 85379; 85610; 85730; 86850; 86900; 86901; 86920; 87040; 87086; 87493; 87641; 89190; 92526 GN; 92610 GN; 92611 GN; 93005; 93970; 94640; 94640 76; 94760; 94799; 97530 GP; 99202; 99281; 99285; C1753; C1755; C9113; J0456; J0696; J1170; J1650; J1815; J1940; J2405; J2543; J2920; J2930; J3480; J7030; J7050; J7070; P9016; P9040

== ENCOUNTER 2017-02-22 14:10 | Inpatient (IN) | payer OTHER, BC ==
[~2017-02-22] VITALS: Ht 172.7 cm; Wt 83.5 kg
[~2017-02-22 14:10] MED LIST changes: +CRANBERRY450 M3 PO; +DEPAKOTE125 MG PO; +FEOSOL325 MG PO; +FLUCONAZOLE100 MG PO; +MOBIC7.5 MG PO; +POTASSIUM CHLO20 MEQ PO; +PROTONIX40 MG PO; +TYLENOL REGULA325 MG PO; +ULTRAM50 MG PO; +XALATAN2.5 ML BOTH EYES; +ZOLOFT50 MG PO
[2017-02-22 14:57] LABS: HEMATOCRIT 27.2 % (36.0-46.0); MCH 29.4 PG (29.0-34.0); MCHC 31.6 G/DL (30.0-36.0); MCV 92.8 FL (83-99); MEAN PLAT.VOLUME 9.9 uM^3 (9.5-12.4); PLATELET COUNT 223 K/uL (156-360); RBC DIS.WIDTH-CV 19.4 % (11.8-14.6); RBC DIS.WIDTH-SD 59.5 % (39-53); RED BLOOD COUNT 2.93 M/uL (3.80-5.20); WHITE BLOOD COUNT 11.9 K/uL (4.1-10.2)
[2017-02-22 15:06] LABS: CHLORIDE 124 mEq/L (99-109); POTASSIUM 3.5 mEq/L (3.7-5.4); SODIUM 150 mEq/L (136-147)
[2017-02-22 15:07] LABS: MAGNESIUM 1.4 mg/dL (1.3-2.7)
[2017-02-22 15:08] LABS: PROTHROMBIN TIME 11.8 SEC (10.2-12.9)
[2017-02-22 15:08] LABS: GLUCOSE 95 mg/dL (70-99)
[2017-02-22 15:10] LABS: ANION GAP 7 MEQ/L (2-14); TOTAL BILIRUBIN 0.3 mg/dL (0.0-1.0)
[2017-02-22 15:11] LABS: PTT 28.2 SEC (25-37)
[2017-02-22 15:12] LABS: ALKALINE PHOSPHATASE 145 IU/L (3-129); GFR ESTIMATE (CALCULATED) 41 mL/min/
[2017-02-22 15:13] LABS: UREA NITROGEN (BUN) 17 mg/dL (9-23)
[2017-02-22 15:18] LABS: TROP-I INTERPRETATION NEGATIVE; TROPONIN-I 0.04 ng/mL (0.0-0.30)
[2017-02-22 15:39] LABS: ANISOCYTOSIS 1+; EOSINOPHIL (%) 0.7 % (0-5); EOSINOPHIL COUNT 0.1 K/uL (0-0.3); IMMATURE GRANULOCYTE (%) 0.3 % (0.0-0.7); INSTRUMENT ABS NEUTROPHIL CT 10.8 K/uL; LYMPHOCYTE COUNT 0.5 K/uL (1.0-2.8); MACROCYTES 1+; MONOCYTE (%) 3.8 % (3-12); MONOCYTE COUNT 0.5 K/uL (0-0.8); NEUTROPHIL (%) 90.7 % (45-76); NEUTROPHIL COUNT 10.8 K/uL (1.8-6.4); PLAT.SUFFICIENCY ADEQUATE
[2017-02-22 15:43] LABS: ADD MIUA? YES; BILIRUBIN NEGATIVE; BLOOD NEGATIVE; COLOR YELLOW ((YELLOW)); GLUCOSE (STRIP) NEGATIVE; KETONES NEGATIVE; LEUKOCYTES NEGATIVE; NITRITE NEGATIVE; PROTEIN (STRIP) NEGATIVE; SPECIFIC GRAVITY 1.008 (1.000-1.030); UROBILINOGEN 0.2 MG/DL (0.2-1.0)
[2017-02-22 16:05] LABS: RED BLOOD CELLS 0-5 /HPF (0-5)
[2017-02-22 16:06] LABS: BACTERIA 1+ /HPF; EPITHELIAL CELLS 1+ /HPF; UCUL ADDED? NO; WHITE BLOOD CELLS RARE /HPF (0-5)
[2017-02-22 16:07] LABS: AMORPHOUS URATES CRYSTALS 2+; HYALINE CASTS 0-5 /LPF
[2017-02-22 16:08] LABS: MUCUS TRACE /LPF
[2017-02-22] MEDS ORDERED: CRANBERRY450 M1 PO (16:20)
[2017-02-22] MEDS ORDERED: LASIX20 MG PO (16:26)
[2017-02-22] MEDS ORDERED: PANTOPRAZOLE SO40 MG PO (16:28)
[2017-02-22] MEDS ORDERED: MILK OF MAGN PO (16:31)
[2017-02-22] MEDS ORDERED: DULCOLAX10 MG PR (16:32)
[2017-02-22] MEDS ORDERED: FLEET ENEMA-AD118 ML PR (16:33)
[2017-02-22 21:30] VITALS: BP 136/74
[2017-02-23 00:28] VITALS: BP 128/69
[2017-02-23 04:19] VITALS: BP 142/81
[2017-02-23 07:10] VITALS: BP 140/67
[2017-02-24] VITALS: BP 99/56
[2017-02-24 00:12] VITALS: BP 99/56
[2017-02-24 07:22] VITALS: BP 98/60
[2017-02-24 08:40] VITALS: BP 00/000
== END 2017-02-24 20:35 | DRG 177 ==
LOC: EME 14:10 → 5EAST 16:43 → EDOF 16:43 → CANRESERV 16:54 → ENRESERV 16:54 → 5EAST 19:17
PROVIDERS: Emergency Medicine
DX: J69.0 Pneumonitis due to inhalation of food and vomit (principal); J96.91 Respiratory failure, unspecified with hypoxia; R40.20 Unspecified coma; N17.9 Acute kidney failure, unspecified; F05 Delirium due to known physiological condition; E87.0 Hyperosmolality and hypernatremia; Z66 Do not resuscitate; Z51.5 Encounter for palliative care; J44.9 Chronic obstructive pulmonary disease, unspecified; D64.9 Anemia, unspecified; E87.6 Hypokalemia; I12.9 Hypertensive chronic kidney disease with stage 1 through stage 4 chronic kidney disease, or unspecified chronic kidney disease; R13.10 Dysphagia, unspecified; R45.1 Restlessness and agitation; N18.9 Chronic kidney disease, unspecified; G30.9 Alzheimer's disease, unspecified; F02.80 Dementia in other diseases classified elsewhere, unspecified severity, without behavioral disturbance, psychotic disturbance, mood disturbance, and anxiety; Z88.2 Allergy status to sulfonamides; Z80.9 Family history of malignant neoplasm, unspecified; Z82.49 Family history of ischemic heart disease and other diseases of the circulatory system
CPT/HCPCS: 71010; 80053; 80202; 81003; 82565; 83605; 83735; 83880; 84484; 84520; 85025 91; 85610; 85730; 87040; 93005; 94640; 94640 76; 94799; 99202; 99281; 99284; J1650; J2060; J2270; J2543; J3370; J3480; J7040; J7050; J7070